=== PATIENT | female | born 1975 | race Caucasian/White ===

== ENCOUNTER 2018-05-26 17:18 | Inpatient (IN) ==
[2018-05-26] MEDS ORDERED: Sodium Phosphate Inj 15 MMOL in Sodium Chlor 0.9% Inj 100 ML IV.SIG PRN (23:30)
[2018-05-26] MEDS ORDERED: Potassium Chlor 40 mEq Premix 40 MEQ/100 ML PIGGYBACK IV.SIG PRN ×2 (23:30)
[2018-05-26] MEDS ORDERED: Potassium Chlor 20 mEq Premix 20 MEQ/100 ML PIGGYBACK IV.SIG PRN ×6 (23:30)
[2018-05-26] MEDS ORDERED: Insulin Regular (For Infusion) 100 UNIT in Sodium Chlor 0.9% Inj 99 ML IV.CONT PRN (23:35)
[2018-05-26] MEDS ORDERED: Acetaminophen 325 MG Tablet PO PRN (23:43)
[2018-05-26] MEDS ORDERED: Bisacodyl 10 MG Supp RECTAL PRN (23:43)
[2018-05-26] MEDS ORDERED: Sodium Chloride 0.9% 2 ML Flush PRN IV.FLUSH (23:48)
--- NOTE | 2018-05-26 23:59 | P.HPIM ---
[facility]: No Primary Care Physician Chief Complaint: Abdominal pain, nausea, and vomiting History of Present Illness: Mrs. Pham is a 43-year-old female with a history of insulin-dependent diabetes mellitus who presented to the emergency room in [place] complaining of abdominal pain with nausea and vomiting similar to symptoms she is experienced before when she is been in DKA. She was found to be in DKA and was transferred to [facility] for management under the hospitalist service. The patient is seen in the ICU with her at her side. She reports she is had severe abdominal pain with nausea and vomiting since 05/26/2018 at night after eating at [employer] and symptoms progressively worsened until she sought medical care. She states her symptoms are similar to other episodes of DKA. She is currently in distress with abdominal pain and nausea. She reports relief from symptoms with Bentyl given at the [place] emergency room. She also complains of generalized weakness and inability to ambulate from weakness. Denies fever or chills. - Diagnosis (1) DKA (diabetic ketoacidoses) Inpatient Certification: I certify that the inpatient services were ordered in accordance with Medicare regulations governing the order. This includes certification that hospital inpatient services are reasonable and necessary and in the case of services not specified as inpatient-only under 42 CFR 419.22(n), that they are appropriately provided as inpatient services in accordance to with the 2-midnight benchmark under 43 CFR 412.3(e) Estimated Total Length of Stay (Days): 3 Plans for Post Hospital Care: Home Review of Systems All other systems reviewed negative except as stated [facility] - History History Provided By: Patient, Family Member - Medical History Medical History: Medical History (Last Updated 05/27/18 @ 00:05 by LUIGI Pierre) Type 1 diabetes mellitus - Surgical History Surgical History: Surgical History (Last Reviewed 05/27/18 @ 00:04 by LUIGI Pierre) H/O breast augmentation H/O spinal fusion H/O tubal ligation - Family History Family History: Family History (Last Updated 05/27/18 @ 00:50 by LUIGI Pierre) Other No family history of diabetes mellitus - Social History I have reviewed the patient's Social History: Yes - Tobacco History Second Hand Smoke Exposure: No Smoking Status: Never smoker - Alcohol History How Often Do You Have a Drink Containing Alcohol: Never - Substance Use History Substance History: No History of Abuse Medications and Allergies Active Medications: Active Medications Acetaminophen (Tylenol) 650 mg PO Q4H PRN PRN Reason: Temp > 100.4 Bisacodyl (Dulcolax Supp) 10 mg RECTAL DAILY PRN PRN Reason: SEVERE CONSITIPATION Chlorhexidine Gluconate (Chlorhexidine 2% Cloth) 3 pack TOPICAL DAILY@0400 NAM Stop: 06/01/18 03:59 Chlorhexidine Gluconate (Chlorhexidine 2% Cloth) 3 pack TOPICAL DAILY@0400 PRN PRN Reason: Extra cloth needed Stop: 06/01/18 03:59 Dextrose/Sodium Chloride (D5w/Normal Saline Inj) 1,000 mls @ 200 mls/hr IV.CONT .Q5H NAM Sodium Chloride (Ns Inj) 1,000 mls @ 250 mls/hr IV.CONT .Q4H NAM Potassium Chloride (Kcl 40 Meq Premix Inj) 40 meq in 100 mls @ 100 mls/hr IV.SIG Q1H PRN PRN Reason: for Initial K+ ONLY < 3.5 Potassium Chloride (Kcl 40 Meq Premix Inj) 40 meq in 100 mls @ 50 mls/hr IV.SIG Q2H PRN PRN Reason: for Subsequent K+ < 3.5 Potassium Chloride (Kcl 20 Meq Premix Inj) 20 meq in 100 mls @ 100 mls/hr IV.SIG Q1H PRN PRN Reason: for K+ 3.5 to 4.4 Potassium Chloride (Kcl 20 Meq Premix Inj) 20 meq in 100 mls @ 100 mls/hr IV.SIG Q1H PRN PRN Reason: for K+ 4.5 to 5 Potassium Chloride (Kcl 20 Meq Premix Inj) 20 meq in 100 mls @ 50 mls/hr IV.SIG Q2H PRN PRN Reason: for Initial K+ ONLY < 3.5 Potassium Chloride (Kcl 20 Meq Premix Inj) 20 meq in 100 mls @ 50 mls/hr IV.SIG Q2H PRN PRN Reason: for Subsequent K+ < 3.5 Potassium Chloride (Kcl 20 Meq Premix Inj) 20 meq in 100 mls @ 50 mls/hr IV.SIG Q2H PRN PRN Reason: for K+ 3.5 to 4.4 Potassium Chloride (Kcl 20 Meq Premix Inj) 20 meq in 100 mls @ 50 mls/hr IV.SIG Q2H PRN PRN Reason: for K+ 4.5 to 5 Sodium Phosphate 15 mmol/ (Sodium Chloride) 105 mls @ 25 mls/hr IV.SIG UNSCH PRN PRN Reason: for Phosphate Level < 1.0 Insulin Human Regular 100 unit (/ Sodium Chloride) 100 mls @ 5 mls/hr IV.CONT TITRATE PRN; Protocol PRN Reason: See protocol Ondansetron HCl (Zofran Inj) 4 mg IV.PUSH Q6H PRN PRN Reason: NAUSEA OR VOMITING Sennosides (Senokot) 17.2 mg PO Q12H PRN PRN Reason: Moderate Constipation Sodium Bicarbonate (Sodium Bicarbonate 8.4% Inj) 50 meq IV.PUSH UNSCH PRN PRN Reason: for pH 6.9 to 7.0 Sodium Bicarbonate (Sodium Bicarbonate 8.4% Inj) 100 meq IV.PUSH UNSCH PRN PRN Reason: for pH less than 6.9 Sodium Chloride (Ns Flush) 2 ml IV.FLUSH BID NAM Sodium Chloride (Ns Flush) 2 ml IV.FLUSH PRN PRN PRN Reason: FLUSH AFTER USING IV ACCESS Allergies Allergy/AdvReac Type Severity Reaction Status Date / Time meperidine [From Demerol] AdvReac Severe Hives Verified 05/26/18 17:46 Home Medications Medication Instructions Recorded Confirmed Type insulin NPH isoph U-100 human 20 unit SUBCUT BID 05/26/18 05/26/18 History [Novolin N NPH U-100 Insulin] insulin regular human [Novolin R 1 sliding scale dose SUBCUT UD 05/26/18 History Regular U-100 Insuln] Exam Vital signs: Intake & Output 05/26/18 05/26/18 05/27/18 06:59 18:59 05:59 Weight 50 kg Narrative: GENERAL: This is a well-nourished, well-developed female patient, complaining of severe abdominal pain and nausea. No vomiting noted. SKIN: No rashes, ecchymoses or lesions. Cool and dry. HEAD: Atraumatic. Normocephalic. EYES: No scleral icterus. No injection or drainage. ENT: Nose without bleeding, purulent drainage. NECK: Trachea midline. No JVD. CARDIOVASCULAR: Regular rate and rhythm without murmurs, gallops, or rubs. RESPIRATORY: Clear to auscultation. Breath sounds equal bilaterally. No wheezes , rales, or rhonchi. GASTROINTESTINAL: Positive bowel sounds. Abdomen soft, diffusely tender, nondistended. No guarding. No rebound. MUSCULOSKELETAL: Extremities without clubbing, cyanosis, or edema. No calf tenderness. NEUROLOGICAL: Awake and alert. Motor and sensory grossly within normal limits. Normal speech. . Caprini VTE Risk Assessment Caprini VTE Risk Assessment: No/Low Risk (score <= 1) Caprini Risk Assessment Model: Point Value = 1 Point Value = 2 Point Value = 3 Point Value = 5 Age 41-60 Minor surgery BMI > 25 kg/m2 Swollen legs Varicose veins or History of unexplained or recurrent spontaneous Oral contraceptives or hormone replacement Sepsis (< 1 month) Serious lung disease, including pneumonia (< 1 month) Abnormal pulmonary function Acute myocardial infarction Congestive heart failure (< 1 month) History of inflammatory bowel disease Medical patient at bed rest Age 61-74 Arthroscopic surgery Major open surgery (> 45 min) Laparoscopic surgery (> 45 min) Malignancy Confined to bed (> 72 hours) Immobilizing plaster cast Central venous access Age >= 75 History of VTE Family history of VTE Factor V Leiden Prothrombin [id number] Lupus anticoagulant Anticardiolipin antibodies Elevated serum homocysteine Heparin-induced thrombocytopenia Other congenital or acquired thrombophilia Stroke (< 1 month) Elective arthroplasty Hip, pelvis, or leg fracture Acute spinal cord injury (< 1 month) Prophylaxis Regimen: Total Risk Factor Score Risk Level Prophylaxis Regimen 0-1 Low Early ambulation 2 Moderate Order ONE of the following: *Sequential Compression Device (SCD) *Heparin 5000 units SQ BID 3-4 Higher Order ONE of the following medications: *Heparin 5000 units SQ TID *Enoxaparin/Lovenox 40 mg SQ daily (WT < 150 kg, CrCl > 30 mL/min) *Enoxaparin/Lovenox 30 mg SQ daily (WT < 150 kg, CrCl > 10-29 mL/min) *Enoxaparin/Lovenox 30 mg SQ BID (WT < 150 kg, CrCl > 30 mL/min) AND/OR *Sequential Compression Device (SCD) 5 or more Highest Order ONE of the following medications: *Heparin 5000 units SQ TID (Preferred with Epidurals) *Enoxaparin/Lovenox 40 mg SQ daily (WT < 150 kg, CrCl > 30 mL/min) *Enoxaparin/Lovenox 30 mg SQ daily (WT < 150 kg, CrCl > 10-29 mL/min) *Enoxaparin/Lovenox 30 mg SQ BID (WT < 150 kg, CrCl > 30 mL/min) AND *Sequential Compression Device (SCD) Assessment and Plan - Assessment (1) DKA (diabetic ketoacidoses) Code(s): E13.10 - Other specified diabetes mellitus with ketoacidosis without coma Status: Acute - Plan Mrs. Pham is a 43-year-old female with a history of insulin-dependent diabetes mellitus who presented to the emergency room in [place] complaining of abdominal pain with nausea and vomiting similar to symptoms she is experienced before when she is been in DKA. She was found to be in DKA and was transferred to [facility] for management under the hospitalist service. DKA -IV insulin drip per DKA protocol -N.p.o. -Will transition to basal/bolus insulin regimen when anion gap closes and CO2 is greater than 20 and patient is tolerating a diet -recheck labs at 0330 Abdominal pain with nausea -Bentyl 20 mg IM x1 dose -Zofran 4 mg IV every 4 hours as needed for nausea/vomiting -Reglan 5 mg IV every 8 hours if Zofran is not effective DVT prophylaxis - early ambulation Discussed Condition With: Dr. Torres, patient, and RN . (1) DKA (diabetic ketoacidoses) Qualifiers: Diabetes mellitus type: type 2 Diabetes mellitus complication detail: without coma Qualified Code(s): E11.10 - Type 2 diabetes mellitus with ketoacidosis without coma
[2018-05-27] MEDS ORDERED: Dicyclomine Inj 20 MG/2 ML Ampul IM ONE (00:42)
[2018-05-27 01:05] LABS: Anion Gap 16 meq/L (5-15); Blood Urea Nitrogen 10 mg/dL (7-18); Calcium 7.5 mg/dL (8.5-10.1); Carbon Dioxide 17.5 meq/L (21.0-32.0); Chloride 106 meq/L (98-107); Glomerular Filtration Rate Greater Than 89 mL/min (>89); Glucose,Random 204 mg/dL (74-106); Magnesium 1.6 mg/dL (1.5-2.5); Potassium 4.2 meq/L (3.5-5.1); Sodium 139 meq/L (136-145)
[2018-05-27 01:06] LABS: Phosphorus 2.4 mg/dL (2.5-4.9)
[2018-05-27 01:52] LABS: Baso # (Auto) 0.1 th/mm3 (0.0-0.2); Baso % (Auto) 0.9 % (0.0-2.0); Eos # (Auto) 0.1 th/mm3 (0.0-0.4); Eos % (Auto) 0.9 % (0.0-4.0); Hematocrit 39.8 % (35.0-46.0); Hemoglobin 13.4 gm/dL (11.6-15.3); Lymph # (Auto) 2.5 th/mm3 (1.0-4.8); Lymph % (Auto) 25.7 % (9.0-44.0); Mean Corpuscular HGB Conc 33.8 % (32.0-36.0); Mean Corpuscular Hemoglobin 32.2 pg (27.0-34.0); Mean Corpuscular Volume 95.4 fL (80.0-100.0); Mean Platelet Volume 7.9 fL (7.0-11.0); Mono # (Auto) 0.6 th/mm3 (0.0-0.9); Mono % (Auto) 5.8 % (0.0-8.0); Neut # (Auto) 6.5 th/mm3 (1.8-7.7); Neut % (Auto) 66.7 % (16.0-70.0); Platelet Count 269 th/mm3 (150-450); Red Blood Count 4.17 mil/mm3 (4.00-5.30); Red Cell Distribution Width 13.3 % (11.6-17.2); White Blood Count 9.7 th/mm3 (4.0-11.0)
[2018-05-27] MEDS: Dextrose 5%/NaCl 0.9% Inj 1,000 ML IV.CONT SCH ×3 (03:08→20:16)
[2018-05-27] MEDS ORDERED: Chlorhexidine Gluconate 2% 1 Pack (2 Cloths) TOPICAL PRN (04:00)
[2018-05-27] MEDS: Chlorhexidine Gluconate 2% 1 Pack (2 Cloths) TOPICAL SCH (04:41)
[2018-05-27] MEDS: Sodium Chloride 0.9% 2 ML Flush BID IV.FLUSH SCH ×2 (08:19→21:56)
[2018-05-27 08:28] LABS: Anion Gap 9 meq/L (5-15); Beta Hydroxybutyric Acid 1.45 mmol/L (0.00-0.39); Blood Urea Nitrogen 6 mg/dL (7-18); Calcium 7.1 mg/dL (8.5-10.1); Carbon Dioxide 20.1 meq/L (21.0-32.0); Chloride 112 meq/L (98-107); Glomerular Filtration Rate Greater Than 89 mL/min (>89); Glucose,Random 144 mg/dL (74-106); Magnesium 1.7 mg/dL (1.5-2.5); Phosphorus 1.4 mg/dL (2.5-4.9); Potassium 3.9 meq/L (3.5-5.1); Sodium 141 meq/L (136-145)
[2018-05-27 08:55] LABS: Calcium-Albumin Corrected 7.5 mg/dL (8.5-10.1); Total Protein 6.4 g/dL (6.4-8.2)
[2018-05-27 12:12] LABS: Anion Gap 8 meq/L (5-15); Blood Urea Nitrogen 5 mg/dL (7-18); Calcium 7.1 mg/dL (8.5-10.1); Carbon Dioxide 20.3 meq/L (21.0-32.0); Chloride 112 meq/L (98-107); Glomerular Filtration Rate Greater Than 89 mL/min (>89); Glucose,Random 160 mg/dL (74-106); Magnesium 1.6 mg/dL (1.5-2.5); Phosphorus 1.5 mg/dL (2.5-4.9); Potassium 3.7 meq/L (3.5-5.1); Sodium 140 meq/L (136-145)
[2018-05-27 12:41] LABS: Calcium-Albumin Corrected 7.7 mg/dL (8.5-10.1); Total Protein 5.9 g/dL (6.4-8.2)
--- NOTE | 2018-05-27 12:46 | P.PN ---
Subjective Interval history: awake and alert, hungry' no nausea or vo iting denies recent fever, or any roecipitating factor, states compliance on NPH 20 units bid and sliding scale- patient is a vegan and does carb counting no urinary symptroms-currently on mentraul cycle but admists to stress lately Physical Exam Vital signs: Vital Signs 05/27/18 00:00 05/27/18 04:00 05/27/18 08:00 Temperature 98.1 F 98.6 F 98.4 F Pulse Rate 91 H 80 82 Respiratory Rate 16 16 Blood Pressure 103/63 94/59 L 113/64 Pulse Oximetry 100 100 100 Intake & Output 05/26/18 05/27/18 05/27/18 19:59 06:59 18:59 Intake Total 1000 / 1000 Balance 1000 / 1000 Weight Intake: IV 1000 / 1000 D5W/Normal Saline Inj 1,000 ML 1000 / 1000 @ 200 mls/hr IV.CONT .Q5H NAM Rx#:[id number] Other: # Voids Weight On Admission Narrative: GENERAL: This is a well-nourished, well-developed female patient, complaining of severe abdominal pain and nausea. No vomiting noted. SKIN: No rashes, ecchymoses or lesions. Cool and dry. HEAD: Atraumatic. Normocephalic. EYES: No scleral icterus. No injection or drainage. ENT: Nose without bleeding, purulent drainage. NECK: Trachea midline. No JVD. CARDIOVASCULAR: Regular rate and rhythm without murmurs, gallops, or rubs. RESPIRATORY: Clear to auscultation. Breath sounds equal bilaterally. No wheezes , rales, or rhonchi. GASTROINTESTINAL: Positive bowel sounds. Abdomen soft, diffusely tender, nondistended. No guarding. No rebound. MUSCULOSKELETAL: Extremities without clubbing, cyanosis, or edema. No calf tenderness. NEUROLOGICAL: Awake and alert. Motor and sensory grossly within normal limits. Normal speech. . Results - Labs CBC & Chem 7: 05/27/18 01:30 EST 05/27/18 18:59 Laboratory Results - last 24 hr 05/26/18 05/26/18 05/27/18 23:50 23:51 00:57 WBC RBC Hgb Hct MCV MCH MCHC RDW Plt Count MPV Neut % (Auto) Lymph % (Auto) [place] % (Auto) Eos % (Auto) Baso % (Auto) Neut # (Auto) Lymph # (Auto) [place] # (Auto) Eos # (Auto) Baso # (Auto) WBC Differential Differential Comment Sodium Potassium Chloride Carbon Dioxide Anion Gap BUN Creatinine Estimated GFR POC Glucose 146 H 183 H Random Glucose Calcium Prot Corrected Calcium Phosphorus Magnesium Total Protein Beta-Hydroxybutyric Acd Nasal Screen MRSA (PCR) Not detected 05/27/18 05/27/18 05/27/18 01:16 EST 01:30 EST 02:18 WBC 9.7 RBC 4.17 Hgb 13.4 Hct 39.8 MCV 95.4 MCH 32.2 MCHC 33.8 RDW 13.3 Plt Count 269 MPV 7.9 Neut % (Auto) 66.7 Lymph % (Auto) 25.7 [place] % (Auto) 5.8 Eos % (Auto) 0.9 Baso % (Auto) 0.9 Neut # (Auto) 6.5 Lymph # (Auto) 2.5 [place] # (Auto) 0.6 Eos # (Auto) 0.1 Baso # (Auto) 0.1 WBC Differential . Differential Comment Auto diff final Sodium Potassium Chloride Carbon Dioxide Anion Gap BUN Creatinine Estimated GFR POC Glucose 181 H 173 H Random Glucose Calcium Prot Corrected Calcium Phosphorus Magnesium Total Protein Beta-Hydroxybutyric Acd Nasal Screen MRSA (PCR) 05/27/18 05/27/18 05/27/18 03:16 04:10 04:57 WBC RBC Hgb Hct MCV MCH MCHC RDW Plt Count MPV Neut % (Auto) Lymph % (Auto) [place] % (Auto) Eos % (Auto) Baso % (Auto) Neut # (Auto) Lymph # (Auto) [place] # (Auto) Eos # (Auto) Baso # (Auto) WBC Differential Differential Comment Sodium Potassium Chloride Carbon Dioxide Anion Gap BUN Creatinine Estimated GFR POC Glucose 169 H 165 H 185 H Random Glucose Calcium Prot Corrected Calcium Phosphorus Magnesium Total Protein Beta-Hydroxybutyric Acd Nasal Screen MRSA (PCR) 05/27/18 05/27/18 05/27/18 06:05 07:00 07:30 WBC RBC Hgb Hct MCV MCH MCHC RDW Plt Count MPV Neut % (Auto) Lymph % (Auto) [place] % (Auto) Eos % (Auto) Baso % (Auto) Neut # (Auto) Lymph # (Auto) [place] # (Auto) Eos # (Auto) Baso # (Auto) WBC Differential Differential Comment Sodium 141 Potassium 3.9 Chloride 112 H Carbon Dioxide 20.1 L Anion Gap 9 BUN 6 L Creatinine 0.56 Estimated GFR Greater than 89 POC Glucose 166 H 139 H Random Glucose 144 H Calcium 7.1 L* Prot Corrected Calcium 7.5 L Phosphorus 1.4 L D Magnesium 1.7 Total Protein 6.4 D Beta-Hydroxybutyric Acd 1.45 H Nasal Screen MRSA (PCR) 05/27/18 05/27/18 05/27/18 07:34 08:05 08:58 WBC RBC Hgb Hct MCV MCH MCHC RDW Plt Count MPV Neut % (Auto) Lymph % (Auto) [place] % (Auto) Eos % (Auto) Baso % (Auto) Neut # (Auto) Lymph # (Auto) [place] # (Auto) Eos # (Auto) Baso # (Auto) WBC Differential Differential Comment Sodium Potassium Chloride Carbon Dioxide Anion Gap BUN Creatinine Estimated GFR POC Glucose 139 H 189 H 183 H Random Glucose Calcium Prot Corrected Calcium Phosphorus Magnesium Total Protein Beta-Hydroxybutyric Acd Nasal Screen MRSA (PCR) 05/27/18 05/27/18 05/27/18 09:57 11:04 11:30 WBC RBC Hgb Hct MCV MCH MCHC RDW Plt Count MPV Neut % (Auto) Lymph % (Auto) [place] % (Auto) Eos % (Auto) Baso % (Auto) Neut # (Auto) Lymph # (Auto) [place] # (Auto) Eos # (Auto) Baso # (Auto) WBC Differential Differential Comment Sodium 140 Potassium 3.7 Chloride 112 H Carbon Dioxide 20.3 L Anion Gap 8 BUN 5 L Creatinine 0.54 Estimated GFR Greater than 89 POC Glucose 174 H 162 H Random Glucose 160 H Calcium 7.1 L* Prot Corrected Calcium 7.7 L Phosphorus 1.5 L Magnesium 1.6 Total Protein 5.9 L Beta-Hydroxybutyric Acd Nasal Screen MRSA (PCR) 05/27/18 11:52 WBC RBC Hgb Hct MCV MCH MCHC RDW Plt Count MPV Neut % (Auto) Lymph % (Auto) [place] % (Auto) Eos % (Auto) Baso % (Auto) Neut # (Auto) Lymph # (Auto) [place] # (Auto) Eos # (Auto) Baso # (Auto) WBC Differential Differential Comment Sodium Potassium Chloride Carbon Dioxide Anion Gap BUN Creatinine Estimated GFR POC Glucose 165 H Random Glucose Calcium Prot Corrected Calcium Phosphorus Magnesium Total Protein Beta-Hydroxybutyric Acd Nasal Screen MRSA (PCR) Assessment and Plan - Plan Mrs. Pham is a 43-year-old female with a history of insulin-dependent diabetes mellitus who presented to the emergency room in [place] complaining of abdominal pain with nausea and vomiting similar to symptoms she is experienced before when she is been in DKA. She was found to be in DKA and was transferred to [facility] for management under the hospitalist service. Ketosis - resolved- gfap down to 9 -on IV insulin drip per DKA protocol start diet start sliding scale regular insulin and start her NPH bid dose at 15 units BID - DC insulin drip 4 hours after first dose of SQ insulin Abdominal pain with nausea- secondary to DKA- pain improved - start diet -Zofran 4 mg IV every 4 hours as needed for nausea/vomiting -Reglan 5 mg IV every 8 hours if Zofran is not effective Hypophosphatemia - replace with Kphos 250 mg tid DVT prophylaxis - early ambulation patient no insurance- will set up with one- CM consult
[2018-05-27] MEDS ORDERED: Dextrose 50% in Water 50 ML Vial IV.PUSH PRN (12:47)
[2018-05-27] MEDS: Insulin NovoLOG Aspart Correctional Sugar Inj SQ SCH ×3 (13:15→21:56)
[2018-05-27] MEDS: Potassium Phos/Sodium Phos 250 MG Tablet PO SCH ×2 (17:58→21:51)
[2018-05-27] MEDS: Sod Chloride 0.9% Inj 1,000 ML IV.CONT SCH ×3 (20:15→22:55)
[2018-05-27 21:58] LABS: Anion Gap 8 meq/L (5-15); Blood Urea Nitrogen 3 mg/dL (7-18); Calcium 7.7 mg/dL (8.5-10.1); Carbon Dioxide 21.4 meq/L (21.0-32.0); Chloride 112 meq/L (98-107); Glomerular Filtration Rate Greater Than 89 mL/min (>89); Glucose,Random 75 mg/dL (74-106); Magnesium 1.7 mg/dL (1.5-2.5); Potassium 3.3 meq/L (3.5-5.1); Sodium 141 meq/L (136-145)
[2018-05-27 21:59] LABS: Beta Hydroxybutyric Acid 0.41 mmol/L (0.00-0.39)
[2018-05-28] MEDS: Sod Chloride 0.9% Inj 1,000 ML IV.CONT SCH ×3 (03:49→12:52)
[2018-05-28] MEDS: Chlorhexidine Gluconate 2% 1 Pack (2 Cloths) TOPICAL SCH (03:50)
[2018-05-28] MEDS: Potassium Phos/Sodium Phos 250 MG Tablet PO SCH ×2 (08:43→12:46)
[2018-05-28] MEDS: Sodium Chloride 0.9% 2 ML Flush BID IV.FLUSH SCH (08:45)
[2018-05-28] MEDS: Insulin NovoLOG Aspart Correctional Sugar Inj SQ SCH ×2 (08:47→12:51)
[2018-05-28 09:40] VITALS: RESP 20; TEMP 98; O2SAT 100
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
[2018-05-28] MEDS: Dextrose 5%/NaCl 0.9% Inj 1,000 ML IV.CONT SCH (10:20)
[2018-05-28 11:10] LABS: Alanine Aminotransferase 34 U/L (10-53); Alkaline Phosphatase 92 U/L (45-117); Anion Gap 9 meq/L (5-15); Aspartate Aminotransferase 28 U/L (15-37); Blood Urea Nitrogen 4 mg/dL (7-18); Calcium 8.3 mg/dL (8.5-10.1); Carbon Dioxide 24.7 meq/L (21.0-32.0); Chloride 103 meq/L (98-107); Glomerular Filtration Rate Greater Than 89 mL/min (>89); Glucose,Random 195 mg/dL (74-106); Potassium 3.5 meq/L (3.5-5.1); Sodium 137 meq/L (136-145); Total Protein 8.1 g/dL (6.4-8.2)
[2018-05-28 13:32] VITALS: BP 129/65; PULSE 75
[2018-05-28 17:07] LABS: Hemoglobin A1c 10.1 % (4.3-6.0)
== END 2018-05-28 15:25 | disposition home or self-care (01) ==
LOC: NEDDLT 17:18 → N03 23:20 → N05 05-27 19:06
PROVIDERS: ADMIT Internal Medicine; ATTEND Internal Medicine